=== PATIENT | male | born 1970 | race American Indian/Alaskan Native ===

== ENCOUNTER 2018-09-20 09:02 | Day surgery (SDC) | payer BC ==
[~2018-09-20 09:02] MED LIST: ANCEF/STERILE WATER 2 GM/20 ML IV NR
[2018-09-20] MEDS ORDERED: VERSED IV ONE (10:44)
[2018-09-20] MEDS ORDERED: LACTATED RINGERS 1,000 ML IV SCH (10:44)
[2018-09-20] MEDS ORDERED: DIPRIVAN 10 MG/ML IV ONE (12:10)
[2018-09-20] MEDS ORDERED: ZOFRAN ONE (12:10)
[2018-09-20] MEDS ORDERED: DECADRON ONE (12:10)
[2018-09-20] MEDS ORDERED: SUBLIMAZE ONE (12:10)
--- NOTE | 2018-09-20 12:49 | Short Stay Summary ---
Short Stay Documentation Date of service: 09/20/18 - History H&P: obtained from office - Allergies and Medications Current Medications: Allergies acyclovir Adverse Reaction (Verified 09/20/18 12:09) Unknown PT STATES MALAISE tamsulosin [From Flomax] Adverse Reaction (Verified 09/20/18 12:09) Dizziness PT ALSO STATES INSOMNIA terazosin Adverse Reaction (Verified 09/20/18 12:09) Unknown PT STATES ORTHOSTATIC HYPOTENSION Home Medications Medication Instructions Recorded Confirmed Last Taken Type Methylsulfonylmethane [MSM] 1,000 mg PO DAILY 09/17/18 09/17/18 09/19/18 History Pumpkin Seed Oil/Saw [place] [Saw 160 mg PO DAILY 09/17/18 09/17/18 09/19/18 History [place] 160 mg Softgel] amLODIPine [Norvasc] 10 mg PO DAILY 09/17/18 09/20/18 09/20/18 05:30 History Active Medications Cefazolin Sodium (Ancef/Sterile Water 2 Gm/20 Ml) 2 gm IV PREOP NR Stop: 09/20/18 23:59 Lactated Ringer's (Lactated Ringers) 1,000 mls @ 100 mls/hr IV DIRECT MARIN - Brief post op/procedure progress note Date of procedure: 09/20/18 Pre-op diagnosis: 6mm rt renal stone (5mm left renal stone) Post-op diagnosis: same Procedure: ESWL rt Anesthesia: GETA Surgeon: PAULINE MONTANA Estimated blood loss: none Condition: stable - Hospital course Hospital course: evelia mcguire, post op info on chart - Disposition Condition at discharge: Stable Disposition: [id number]-01 TO HOME OR SELFCARE Short Stay Discharge Plan Follow up with: SHRUTHI LOTT MD [Primary Care Provider] - 7 Days
[2018-09-20 13:53] VITALS: BP 108/58
--- NOTE | 2018-09-20 15:45 | Operative Report ---
PREOPERATIVE DIAGNOSIS: Right 6 mm stone with colic. POSTOPERATIVE DIAGNOSIS: Bilateral renal stones. PROCEDURE: Right extracorporal shock wave lithotripsy, staged procedure. SURGEON: PAULINE MONTANA MD ANESTHESIA: General. ESTIMATED BLOOD LOSS: Minimal. FLUIDS: Crystalloid. COMPLICATIONS: No complications. INDICATIONS: This patient is a 47-year-old gentleman seen in our office for flank pain. CT of abdomen and pelvis revealed 6 mm right renal stone, 5 mm left renal stone. He has right flank pain. We agreed to proceed with surgical intervention. DESCRIPTION OF PROCEDURE: The patient was taken to the operative suite, placed in a supine position. After adequate general anesthesia, stone was localized in 2 planes using fluoroscopy. Extracorporal shock wave lithotripsy was administered in maximum kV of 8 2500 shocks. There was some fragmentation of his stone. He tolerated the procedure well and was extubated and taken to recovery room. He will go home on [employer], and follow up in the office. JOB# [id number] [facility]
--- NOTE | 2018-09-20 17:27 | Anesthesia Consultation ---
Anesthesia Consult and Med Hx - Airway Anesthetic Teeth Evaluation: Good Mental/Hyoid Distance: Adequate Mallampati Class: Class II Intubation Access Assessment: Good - Pulmonary Exam CTA: Yes - Cardiac Exam Cardiac Exam: RRR - Pre-Operative Health Status ASA Pre-Surgery Classification: ASA2 Proposed Anesthetic Plan: General - Pulmonary Hx Smoking: No Hx Sleep Apnea: Yes (DX SLEEP APNEA WITH CPAP USE.) - Cardiovascular System Hx Hypertension: Yes (X 4 MONTHS) - Central Nervous System Hx Back Pain: Yes (NECK AND BACK PAIN) - Hematic Hx Sickle Cell Disease: No (SC TRAIT ONLY) - Other Systems Hx Cancer: No
--- NOTE | 2018-09-20 17:27 | Anesthesia Day of Surgery ---
Anesthesia Day of Surgery - Day of Surgery Patient Examined: Yes Patient H&P Reviewed: Yes Patient is NPO: Yes
--- NOTE | 2018-09-20 17:28 | Post Anesthesia Evaluation ---
- Post Anesthesia Evaluation Patient Participated: Yes Airway Patent: Yes Stable Respiratory Function: Yes Nausea/Vomiting: No Temp > 96.8F: Yes Pain Manageable: Yes Adequeate Hydration: Yes Anesthesia Complications: No Block Receding Appropriately: Not Applicable Patient on Ventilator: No
== END 2018-09-20 09:03 | disposition home or self-care (01) ==
LOC: OR 09:02
PROVIDERS: ATTEND Urology
DX: N20.0 Calculus of kidney (principal); I10 Essential (primary) hypertension; G47.30 Sleep apnea, unspecified; M19.90 Unspecified osteoarthritis, unspecified site; Z79.899 Other long term (current) drug therapy; Z88.8 Allergy status to other drugs, medicaments and biological substances
CPT/HCPCS: 50590; J0690; J1100; J2250; J2405; J2704; J3010; J7120